=== PATIENT | male | born 1990 | race Caucasian/White ===

== ENCOUNTER 2018-11-27 18:47 | Emergency (ER) | payer MEDICAID ==
[~2018-11-27] VITALS: Ht 185.4 cm; Wt 218.2 kg
[~2018-11-27 18:47] MED LIST: ATEN25TA PO; DIAZ-351 PO; GENT5DRO4 EACHEYE; PANT-47 PO
[2018-11-27 18:48] VITALS: BP 112/74
[2018-11-27] MEDS ORDERED: AZIT250T PO (19:39)
== END 2018-11-27 19:54 | disposition home or self-care (01) ==
LOC: ER 18:48
DX: J06.9 Acute upper respiratory infection, unspecified (principal); K21.9 Gastro-esophageal reflux disease without esophagitis; F12.90 Cannabis use, unspecified, uncomplicated; F17.210 Nicotine dependence, cigarettes, uncomplicated; Z56.0 Unemployment, unspecified; Z79.899 Other long term (current) drug therapy
CPT/HCPCS: 93005; 99283

== ENCOUNTER 2019-02-08 21:23 | Emergency (ER) | payer MEDICAID ==
[~2019-02-08] VITALS: Ht 185.4 cm; Wt 81.0 kg
[~2019-02-08 21:23] MED LIST changes: +AZIT250T PO
[2019-02-08 21:25] VITALS: BP 137/82
--- NOTE | 2019-02-08 23:11 | NUR ---
PT ELOPED FROM ED BEFORE BEING SEEN BY A PROVIDER FOR UNKNOWN REASON, PT LEFT WITH A PIV STILL IN. ATTEMPTED TO CONTACT PT VIA PHONE UNABLE TO GET AHOLD OF HIM. EPIFANIO WAS CALLED REGARDING EVENT.
== END 2019-02-08 23:16 | disposition left against medical advice (07) ==
LOC: ER 21:23
DX: R06.02 Shortness of breath (principal); Z53.21 Procedure and treatment not carried out due to patient leaving prior to being seen by health care provider
CPT/HCPCS: 93005

== ENCOUNTER 2019-02-24 20:49 | Emergency (ER) | payer MEDICAID ==
[~2019-02-24] VITALS: Ht 185.4 cm; Wt 81.0 kg
[2019-02-24] MEDS ORDERED: normal saline 1000ML IV soln IVB ONE (21:00)
[2019-02-24] MEDS ORDERED: famotidine/PF 10 mg/ml inj IV ONE (21:00)
[2019-02-24] MEDS ORDERED: ondansetron/PF 4mg/2ml inj IV ONE (21:00)
[2019-02-24 21:09] VITALS: BP 129/75
--- NOTE | 2019-02-24 21:18 | NUR ---
PT DISCONNECTED HIS IV AND PULLED OF HIS BARK PEELER TO GO TO THE BATHROOM, WHEN PT RETURNED TO HIS ROOM HE INSISTED THAT HE HAD TO GO TO OUTSIDE TO SMOKE. I NOTIFIED THE PT THAT HE WASN'T ABLE TO GO OUTSIDE TO SMOKE AND THAT IF HE WANTED TO CONTINUE TO BE TREATED HE NEEDED TO REMAIN IN THE ED. PT INSISTED ON LEAVING. I DC'D PT'S IV ([facility] INTACT) AND HE LEFT THE ED. PROVIDER NOTIFIED.
[2019-02-24 21:29] LABS: ALANINE AMINOTRANSFERASE 68 U/L (12-78); ALBUMIN 3.7 G/DL (3.4-5.0); ALKALINE PHOSPHATASE 60 IU/L (46-116); ANION GAP 14 (8-16); ASPARTATE AMINO TRANSFERASE 121 U/L (10-37); BILIRUBIN,TOTAL 0.2 MG/DL (0.1-1.0); BLOOD UREA NITROGEN 5 MG/DL (7-18); BUN/CREATININE RATIO 7.8 (5.4-32.0); CALCIUM 8.5 MG/DL (8.5-10.1); CHLORIDE 105 MMOL/L (99-107); CREATININE 0.64 MG/DL (0.60-1.10); GLUCOSE 95 MG/DL (70-104); LIPASE 185 U/L (73-393); SODIUM 142 MMOL/L (135-145); TOTAL CARBON DIOXIDE 23.3 MMOL/L (24-32); TOTAL PROTEIN 7.3 G/DL (6.4-8.2); eGFR > 90 ML/MIN
[2019-02-24 21:37] LABS: BASOPHILS % (AUTO) 1.4 % (0-1); EOSINOPHILS # (AUTO) 0.1 X10'3 (0-0.9); HEMATOCRIT 41.1 % (42.0-52.0); HEMOGLOBIN 13.9 g/dl (14.0-17.9); LYMPHOCYTES # (AUTO) 1.1 X10'3 (1.1-4.8); LYMPHOCYTES % (AUTO) 33.6 % (21-51); MEAN CORPUSCULAR HEMOGLOBIN 33.3 PG (27.0-31.0); MEAN CORPUSCULAR HGB CONC 33.8 g/dL (33.0-36.5); MEAN CORPUSCULAR VOLUME 98.4 FL (78-98); MONOCYTES # (AUTO) 0.3 X10'3 (0-0.9); MONOCYTES % (AUTO) 8.5 % (2-12); NEUTROPHILS # (AUTO) 1.8 X10'3 (1.8-7.7); NEUTROPHILS % (AUTO) 54.5 % (42-75); PLATELET COUNT 108 X10'3 (140-440); RED BLOOD COUNT 4.17 X10'6 (4.70-6.10); WHITE BLOOD COUNT 3.3 X10'3 (4.5-11.0)
[2019-02-24 21:41] LABS: ETHANOL 0.471 GM/DL (0.0-0.010)
== END 2019-02-24 21:25 | disposition home or self-care (01) ==
LOC: ER 20:50
DX: F10.129 Alcohol abuse with intoxication, unspecified (principal); R10.13 Epigastric pain; R07.89 Other chest pain; R47.81 Slurred speech; K21.9 Gastro-esophageal reflux disease without esophagitis; F41.9 Anxiety disorder, unspecified; F32.9 Major depressive disorder, single episode, unspecified; F12.90 Cannabis use, unspecified, uncomplicated; Z86.69 Personal history of other diseases of the nervous system and sense organs; Z56.0 Unemployment, unspecified; Z79.2 Long term (current) use of antibiotics; Z79.899 Other long term (current) drug therapy; Y90.9 Presence of alcohol in blood, level not specified
CPT/HCPCS: 36415; 80053; 80320; 83690; 85025; 85610; 93005; 96374; 96375; 99284; J2405; J3490; J7030

== ENCOUNTER 2019-03-01 16:42 | Emergency (ER) | payer MEDICAID ==
[~2019-03-01] VITALS: Ht 185.4 cm; Wt 81.8 kg
[~2019-03-01 16:42] MED LIST changes: +LIDOcaine 1% W/epiNEPHrine 1:100,000 20ml vial ONE
[2019-03-01 17:34] VITALS: BP 106/69
== END 2019-03-01 19:20 | disposition home or self-care (01) ==
LOC: ER 16:42
DX: S80.11XA Contusion of right lower leg, initial encounter (principal); K21.9 Gastro-esophageal reflux disease without esophagitis; F12.90 Cannabis use, unspecified, uncomplicated; F17.200 Nicotine dependence, unspecified, uncomplicated; Z56.0 Unemployment, unspecified; Z79.899 Other long term (current) drug therapy; W22.8XXA Striking against or struck by other objects, initial encounter; Y93.89 Activity, other specified; Y92.89 Other specified places as the place of occurrence of the external cause; Y99.9 Unspecified external cause status
CPT/HCPCS: 73590; 99283

== ENCOUNTER 2019-07-05 19:18 | Emergency (ER) | payer MEDICAID ==
[~2019-07-05] VITALS: Ht 190.5 cm; Wt 85.0 kg
[~2019-07-05 19:18] MED LIST changes: -LIDOcaine 1% W/epiNEPHrine 1:100,000 20ml vial ONE
[2019-07-05 19:20] VITALS: BP 171/115
[2019-07-05] MEDS ORDERED: ketorolac trometh inj. 60 MG/2 ML VIAL IM ONE (20:30)
[2019-07-05] MEDS ORDERED: iohexol 300mg/ml 100ml inj. ONE (20:34)
[2019-07-05] MEDS ORDERED: MELO-100 PO (21:38)
== END 2019-07-05 21:57 | disposition home or self-care (01) ==
LOC: ER 19:19
DX: S60.511A Abrasion of right hand, initial encounter (principal); M79.18 Myalgia, other site; M25.562 Pain in left knee; R07.81 Pleurodynia; M54.2 Cervicalgia; R51 Headache; V09.9XXA Pedestrian injured in unspecified transport accident, initial encounter; Y93.89 Activity, other specified; Y92.488 Other paved roadways as the place of occurrence of the external cause; Y99.8 Other external cause status
CPT/HCPCS: 70450; 71260; 72125; 73130; 73564; 74177; 96372; 99284; J1885; Q9967

== ENCOUNTER 2020-04-28 08:02 | Emergency (ER) | payer MEDICAID ==
[~2020-04-28] VITALS: Ht 188 cm; Wt 81.8 kg
[~2020-04-28 08:02] MED LIST changes: +LIDOcaine 1% W/epiNEPHrine 1:100,000 20ml vial ONE; +MELO-100 PO
[2020-04-28] MEDS ORDERED: sulfamethoxazole/trimethoprim DS (800/160mg) tablet PO ONE (08:15)
[2020-04-28] MEDS ORDERED: cephalexin 250mg capsule PO ONE (08:15)
[2020-04-28] MEDS ORDERED: ondansetron 4mg rapidly disintigrating tab PO ONE (08:15)
[2020-04-28] MEDS ORDERED: acetaminophen 325mg tablet PO ONE (08:20)
[2020-04-28] MEDS ORDERED: ketorolac trometh. 30mg/ml inj. IM ONE (08:20)
[2020-04-28] MEDS ORDERED: bacitracin 15gm ointment TP ONE (08:20)
[2020-04-28] MEDS ORDERED: TETanus/Pertussis (Acell)/Diphther VAC/PF (Tdap-Adult) 0.5ml syringe IMVAC ONE (08:20)
[2020-04-28] MEDS ORDERED: CEPH250T PO (08:39)
[2020-04-28] MEDS ORDERED: SULF1TAB49 PO (08:39)
[2020-04-28] MEDS ORDERED: HYDROcodone/acetaminophen 5mg/325mg tablet PO ONE (08:45)
[2020-04-28] MEDS ORDERED: HYDR-3965 PO (09:22)
[2020-04-28 10:20] VITALS: BP 115/80
== END 2020-04-28 10:23 | disposition home or self-care (01) ==
LOC: ER 08:03
DX: L02.512 Cutaneous abscess of left hand (principal); M79.645 Pain in left finger(s); K21.9 Gastro-esophageal reflux disease without esophagitis; F41.9 Anxiety disorder, unspecified; F32.9 Major depressive disorder, single episode, unspecified; F12.90 Cannabis use, unspecified, uncomplicated; Z86.69 Personal history of other diseases of the nervous system and sense organs; Z72.89 Other problems related to lifestyle; Z56.0 Unemployment, unspecified; Z79.2 Long term (current) use of antibiotics; Z79.899 Other long term (current) drug therapy
CPT/HCPCS: 26010; 90471; 90715; 99284

== ENCOUNTER 2020-11-03 21:43 | Emergency (ER) | payer MEDICAID ==
[~2020-11-03] VITALS: Ht 188 cm; Wt 81.8 kg
[~2020-11-03 21:43] MED LIST changes: -LIDOcaine 1% W/epiNEPHrine 1:100,000 20ml vial ONE
[2020-11-03 21:55] VITALS: BP 147/100
[2020-11-03] MEDS ORDERED: ondansetron 4mg rapidly disintigrating tab PO ONE (23:35)
[2020-11-03] MEDS ORDERED: HYDROcodone/acetaminophen 5mg/325mg tablet PO ONE (23:35)
[2020-11-03] MEDS ORDERED: amox tr/potassium clavulanate 875/125mg TAB PO ONE (23:35)
[2020-11-03] MEDS ORDERED: IBUP-1984 PO (23:40)
[2020-11-03] MEDS ORDERED: AMOX-422 PO (23:40)
== END 2020-11-04 00:30 | disposition home or self-care (01) ==
LOC: ER 21:43
DX: H66.92 Otitis media, unspecified, left ear (principal); G43.909 Migraine, unspecified, not intractable, without status migrainosus; K21.9 Gastro-esophageal reflux disease without esophagitis; F12.90 Cannabis use, unspecified, uncomplicated; Z56.0 Unemployment, unspecified; Z72.89 Other problems related to lifestyle; Z79.2 Long term (current) use of antibiotics; Z79.899 Other long term (current) drug therapy
CPT/HCPCS: 99284

== ENCOUNTER 2020-11-16 18:05 | Emergency (ER) | payer MEDICAID ==
[~2020-11-16] VITALS: Ht 188 cm; Wt 81.8 kg
[2020-11-16 18:43] VITALS: BP 144/100
== END 2020-11-16 21:12 | disposition home or self-care (01) ==
LOC: ER 18:05
DX: H61.23 Impacted cerumen, bilateral (principal); F41.9 Anxiety disorder, unspecified; F32.9 Major depressive disorder, single episode, unspecified; K21.9 Gastro-esophageal reflux disease without esophagitis; Z56.0 Unemployment, unspecified
CPT/HCPCS: 69210; 99282

== ENCOUNTER 2021-01-04 18:02 | Emergency (ER) | payer MEDICAID ==
[~2021-01-04] VITALS: Ht 188 cm; Wt 86.3 kg
[2021-01-04 18:27] VITALS: BP 126/86
== END 2021-01-04 22:50 | disposition left against medical advice (07) ==
LOC: ER 18:04
DX: K13.79 Other lesions of oral mucosa (principal); Z53.21 Procedure and treatment not carried out due to patient leaving prior to being seen by health care provider

== ENCOUNTER 2021-01-08 20:36 | Emergency (ER) | payer MEDICAID ==
[~2021-01-08] VITALS: Ht 188 cm; Wt 86.4 kg
--- NOTE | 2021-01-08 20:50 | NUR ---
when pt is ready for d\c please call mom (aime) at [phone] provided pt gives permission to do so. She states she will come get him and take him to rehab
[2021-01-08 21:17] VITALS: BP 131/84
[2021-01-08] MEDS ORDERED: ibuprofen tablet 400 MG TABLET PO ONE (21:40)
[2021-01-08] MEDS ORDERED: AMOX-422 PO (21:51)
[2021-01-08] MEDS ORDERED: PRED20TA PO (21:51)
[2021-01-08] MEDS ORDERED: GABA300C PO (21:51)
--- NOTE | 2021-01-08 21:53 | NUR ---
CONTACTED BRISEIDA WITH PTS PERMISSION. SHE IS SENDING MEÑO TO [employer] ARCHITECT THE PATIENT.
== END 2021-01-08 22:01 | disposition home or self-care (01) ==
LOC: ER 20:37
DX: G89.29 Other chronic pain (principal); H92.03 Otalgia, bilateral; F10.10 Alcohol abuse, uncomplicated; J02.9 Acute pharyngitis, unspecified; K21.9 Gastro-esophageal reflux disease without esophagitis; F41.9 Anxiety disorder, unspecified; F32.9 Major depressive disorder, single episode, unspecified; F12.90 Cannabis use, unspecified, uncomplicated; Z56.0 Unemployment, unspecified; Z86.69 Personal history of other diseases of the nervous system and sense organs; Z79.899 Other long term (current) drug therapy; Y90.9 Presence of alcohol in blood, level not specified
CPT/HCPCS: 99283

== ENCOUNTER 2021-01-12 08:12 | Emergency (ER) | payer MEDICAID ==
[~2021-01-12] VITALS: Ht 188 cm; Wt 86.0 kg
[~2021-01-12 08:12] MED LIST changes: +AMOX-422 PO; +GABA300C PO; +PRED20TA PO
[2021-01-12 08:43] VITALS: BP 131/96
[2021-01-12] MEDS ORDERED: LORazepam 1 MG tablet PO ONE (10:30)
[2021-01-12 10:59] LABS: BASOPHILS % (AUTO) 0.5 % (0-1); EOSINOPHILS # (AUTO) 0.1 X10'3 (0-0.9); EOSINOPHILS % (AUTO) 1.1 % (0-6); HEMATOCRIT 42.7 % (42.0-52.0); HEMOGLOBIN 14.6 g/dl (14.0-17.9); LYMPHOCYTES # (AUTO) 0.7 X10'3 (1.1-4.8); LYMPHOCYTES % (AUTO) 9.6 % (21-51); MEAN CORPUSCULAR HEMOGLOBIN 32.9 PG (27.0-31.0); MEAN CORPUSCULAR VOLUME 96.7 FL (78-98); MEAN PLATELET VOLUME 9.1 FL (7.4-10.4); MONOCYTES # (AUTO) 0.6 X10'3 (0-0.9); MONOCYTES % (AUTO) 8.9 % (2-12); NEUTROPHILS # (AUTO) 5.5 X10'3 (1.8-7.7); NEUTROPHILS % (AUTO) 79.9 % (42-75); PLATELET COUNT 103 X10'3 (140-440); RED BLOOD COUNT 4.42 X10'6 (4.70-6.10); RED CELL DISTRIBUTION WIDTH 12.9 % (11.5-14.5); WHITE BLOOD COUNT 6.9 X10'3 (4.5-11.0)
[2021-01-12 11:09] LABS: ALANINE AMINOTRANSFERASE 61 U/L (12-78); ALBUMIN 3.8 G/DL (3.4-5.0); ALBUMIN/GLOBULIN RATIO 0.9 (1.1-1.5); ALKALINE PHOSPHATASE 63 IU/L (46-116); ANION GAP 14 (8-16); ASPARTATE AMINO TRANSFERASE 96 U/L (10-37); BLOOD UREA NITROGEN 7 MG/DL (7-18); BUN/CREATININE RATIO 12.3 (5.4-32.0); CALCIUM 9.1 MG/DL (8.5-10.1); CHLORIDE 96 MMOL/L (99-107); CREATININE 0.57 MG/DL (0.60-1.10); GLUCOSE 80 MG/DL (70-104); POTASSIUM 3.7 MMOL/L (3.5-5.1); SODIUM 133 MMOL/L (135-145); TOTAL CARBON DIOXIDE 23.2 MMOL/L (24-32); eGFR > 90 ML/MIN
[2021-01-12] MEDS ORDERED: LORA-269 PO (11:44)
== END 2021-01-12 12:21 | disposition home or self-care (01) ==
LOC: ER 08:14
DX: Z02.89 Encounter for other administrative examinations (principal); F10.230 Alcohol dependence with withdrawal, uncomplicated; R25.1 Tremor, unspecified; R50.9 Fever, unspecified; R25.3 Fasciculation; K21.9 Gastro-esophageal reflux disease without esophagitis; F41.9 Anxiety disorder, unspecified; F32.9 Major depressive disorder, single episode, unspecified; F12.90 Cannabis use, unspecified, uncomplicated; Z86.69 Personal history of other diseases of the nervous system and sense organs; Z56.0 Unemployment, unspecified; Z79.2 Long term (current) use of antibiotics; Z79.899 Other long term (current) drug therapy; Y90.9 Presence of alcohol in blood, level not specified
CPT/HCPCS: 36415; 80053; 85025; 99283

== ENCOUNTER 2021-01-30 23:19 | Emergency (ER) | payer MEDICAID ==
[~2021-01-30] VITALS: Ht 188 cm; Wt 86.3 kg
[~2021-01-30 23:19] MED LIST changes: -AMOX-422 PO; +LORA-269 PO; -PRED20TA PO
== END 2021-01-31 00:05 | disposition home or self-care (01) ==
LOC: ER 23:20
DX: D49.0 Neoplasm of unspecified behavior of digestive system (principal); F17.210 Nicotine dependence, cigarettes, uncomplicated; G43.909 Migraine, unspecified, not intractable, without status migrainosus; K21.9 Gastro-esophageal reflux disease without esophagitis; F12.90 Cannabis use, unspecified, uncomplicated; Z56.0 Unemployment, unspecified; Z79.2 Long term (current) use of antibiotics; Z79.899 Other long term (current) drug therapy
CPT/HCPCS: 99281

== ENCOUNTER 2021-03-25 14:25 | Emergency (ER) | payer MEDICAID | END 2021-03-25 15:36 | disposition left against medical advice (07) | LOC: ER 14:25 | DX: K13.79 Other lesions of oral mucosa (principal); Z53.21 Procedure and treatment not carried out due to patient leaving prior to being seen by health care provider ==

== ENCOUNTER 2021-05-24 20:40 | Emergency (ER) | payer MEDICAID ==
[~2021-05-24] VITALS: Ht 185.4 cm; Wt 88.4 kg
[2021-05-24 20:48] VITALS: BP 141/101
== END 2021-05-24 23:49 | disposition left against medical advice (07) ==
LOC: ER 20:41
DX: R07.0 Pain in throat (principal); Z53.21 Procedure and treatment not carried out due to patient leaving prior to being seen by health care provider

== ENCOUNTER 2021-07-24 05:46 | Inpatient (IN) | payer MEDICAID ==
[~2021-07-24] VITALS: Ht 167.6 cm; Wt 94.6 kg
--- NOTE | 2021-07-24 07:20 | NUR ---
Patient brought to room 13 with alarm security or surveillance monitor. Patient appears pale, is breathing heavy and moaning; gait steady. Patient states he cannot sit still and states he has anxiety. Patient pacing in room; mother at bedside.
--- NOTE | 2021-07-24 07:30 | NUR ---
Patient unable to give urine specimen at this time. Patient pacing in room; states he cannot sit still; requests doors to room to remain open.
--- NOTE | 2021-07-24 07:35 | NUR ---
Patient able to sit in bed for IV placement and blood draw.
--- NOTE | 2021-07-24 07:45 | NUR ---
Patient found on floor next to bed, appearing to be seizing with small amount of bleeding from two lacerations right upper face over zygomatic arch and right brow.
[2021-07-24] MEDS ORDERED: LORazepam 2 mg/ml vial ONE (07:48)
[2021-07-24 07:49] LABS: BASOPHILS % (AUTO) 0.3 % (0-1); EOSINOPHILS # (AUTO) 0.1 X10'3 (0-0.9); EOSINOPHILS % (AUTO) 1.2 % (0-6); HEMATOCRIT 42.5 % (42.0-52.0); HEMOGLOBIN 14.8 g/dl (14.0-17.9); LYMPHOCYTES # (AUTO) 1.5 X10'3 (1.1-4.8); LYMPHOCYTES % (AUTO) 14.6 % (21-51); MEAN CORPUSCULAR HEMOGLOBIN 33.6 PG (27.0-31.0); MEAN CORPUSCULAR HGB CONC 34.9 g/dL (33.0-36.5); MEAN CORPUSCULAR VOLUME 96.2 FL (78-98); MEAN PLATELET VOLUME 7.9 FL (7.4-10.4); MONOCYTES # (AUTO) 0.8 X10'3 (0-0.9); MONOCYTES % (AUTO) 7.6 % (2-12); NEUTROPHILS # (AUTO) 7.9 X10'3 (1.8-7.7); NEUTROPHILS % (AUTO) 76.3 % (42-75); PLATELET COUNT 191 X10'3 (140-440); RED BLOOD COUNT 4.41 X10'6 (4.70-6.10); RED CELL DISTRIBUTION WIDTH 14.1 % (11.5-14.5); WHITE BLOOD COUNT 10.3 X10'3 (4.5-11.0)
[2021-07-24] MEDS ORDERED: LORazepam 2 mg/ml vial IV ONE (07:50)
--- NOTE | 2021-07-24 07:50 | NUR ---
Patient assisted back to bed; seizure pads placed; both side rails raised. Patient moaning and moving extremities.
[2021-07-24] MEDS ORDERED: thiamine inj. 100 MG in normal saline 100ml IV soln 99 ML IV ONE (08:00)
[2021-07-24] MEDS ORDERED: magnesium 2GM in 50ml NS 50 ML IV ONE (08:00)
[2021-07-24] MEDS ORDERED: diphenhydrAMINE 50 mg/ml inj IV ONE (08:00)
[2021-07-24] MEDS ORDERED: phenobarbital inj 260 MG in normal saline 100ml IV soln 100 ML IV ONE (08:00)
[2021-07-24] MEDS ORDERED: haloperidol lactate 5mg/ml inj ONE (08:00)
[2021-07-24] MEDS ORDERED: diphenhydrAMINE 50 mg/ml inj ONE (08:00)
[2021-07-24] MEDS ORDERED: haloperidol lactate 5mg/ml inj IM ONE (08:00)
[2021-07-24 08:05] LABS: ALANINE AMINOTRANSFERASE 33 U/L (12-78); ALBUMIN/GLOBULIN RATIO 0.9 (1.1-1.5); ALKALINE PHOSPHATASE 68 IU/L (46-116); ANION GAP 22 (8-16); ASPARTATE AMINO TRANSFERASE 41 U/L (10-37); BILIRUBIN,TOTAL 0.8 MG/DL (0.1-1.0); BLOOD UREA NITROGEN 11 MG/DL (7-18); BUN/CREATININE RATIO 7.7 (5.4-32.0); CHLORIDE 92 MMOL/L (99-107); CREATININE 1.42 MG/DL (0.60-1.10); GLUCOSE 98 MG/DL (70-104); POTASSIUM 3.1 MMOL/L (3.5-5.1); SODIUM 133 MMOL/L (135-145); TOTAL CARBON DIOXIDE 19.1 MMOL/L (24-32); TOTAL PROTEIN 8.4 G/DL (6.4-8.2); eGFR 58 ML/MIN
[2021-07-24] MEDS ORDERED: TETanus/Pertussis (Acell)/Diphther VAC/PF (Tdap-Adult) 0.5ml syringe IMVAC ONE (10:00)
[2021-07-24] MEDS ORDERED: bacitracin 15gm ointment TP ONE (10:00)
[2021-07-24] MEDS ORDERED: LIDOcaine 1% W/epiNEPHrine 1:100,000 20ml vial IJ ONE ×2 (10:00→17:30)
[2021-07-24 10:19] LABS: LACTIC SEPSIS 4.6 MMOL/L (0.4-2.0)
[2021-07-24 14:16] LABS: GLUCOSE,CSF 67 MG/DL (40-75); TOTAL PROTEIN,CSF 60 MG/DL (15-45)
[2021-07-24 14:17] LABS: CLARITY,URINE SLIGHTLY CLOUDY (Clear); COLOR,URINE YELLOW (Yellow); GLUCOSE, URINE NEGATIVE (Neg); KETONES,URINE 15 mg/dl (Neg); LEUKOCYTE ESTERASE ,URINE NEGATIVE (Neg); NITRITES, URINE NEGATIVE (Neg); OCCULT BLOOD,URINE TRACE-INTACT (Neg); PH,URINE 5.5 (4.8-8.0); PROTEIN,URINE NEGATIVE (Neg); UROBILINOGEN,URINE 0.2 E.U/dL (0.2-1.0)
[2021-07-24 14:19] LABS: APPEARANCE,CSF CLEAR; CSF SUPERNATANT COLOR COLORLESS; CSF VOLUME 7 ML; TUBE# COUNTED 1
[2021-07-24 14:22] LABS: UA COLLECTION TYPE STRAIGHT CATH
[2021-07-24 14:23] LABS: APPEARANCE,CSF CLEAR; CSF RBC 1625 /CU MM (0); CSF SUPERNATANT COLOR COLORLESS; CSF VOLUME 7 ML; CSF WBC CT 4 /CU MM (0-5); TUBE# COUNTED 4
[2021-07-24 14:24] LABS: CSF RBC 81 /CU MM (0); CSF WBC CT 1 /CU MM (0-5)
[2021-07-24 14:28] LABS: URINE AMPHETAMINE SCREEN POSITIVE (Neg); URINE BARBITUATE SCREEN POSITIVE (Neg); URINE BENZODIAZEPINES SCREEN POSITIVE (Neg); URINE CANNABINOID SCREEN POSITIVE (Neg); URINE COCAINE SCREEN NEGATIVE (Neg); URINE METHADONE SCREEN NEGATIVE (Neg); URINE OPIATE SCREEN NEGATIVE (Neg); URINE PHENCYCLIDINE SCREEN NEGATIVE (Neg)
[2021-07-24 14:42] LABS: BACTERIA,URINE NONE SEEN /HPF (Neg); MUCUS STRANDS FEW /LPF (Neg); RBC,URINE 0-2 /HPF (0-2); SQUAMOUS EPITHELIAL CELL,UR NONE SEEN /LPF (FEW); WBC,URINE NONE SEEN /HPF (0-4)
--- NOTE | 2021-07-24 14:45 | NUR ---
Neurology consult in progress at bedside.
[2021-07-24] MEDS ORDERED: levetiracetam inj 1,500 MG in normal saline 100ml IV soln 85 ML IV ONE (15:20)
[2021-07-24] MEDS ORDERED: normal saline 1000ml 1,000 ML IVB ONE (15:35)
[2021-07-24] MEDS ORDERED: levetiracetamNACL 1500mg/100mL 100 ML IV ONE (15:55)
[2021-07-24 16:20] LABS: ALANINE AMINOTRANSFERASE 30 U/L (12-78); ALBUMIN 3.4 G/DL (3.4-5.0); ALBUMIN/GLOBULIN RATIO 0.9 (1.1-1.5); ALKALINE PHOSPHATASE 61 IU/L (46-116); ANION GAP 12 (8-16); ASPARTATE AMINO TRANSFERASE 40 U/L (10-37); BILIRUBIN,TOTAL 0.9 MG/DL (0.1-1.0); BLOOD UREA NITROGEN 14 MG/DL (7-18); BUN/CREATININE RATIO 16.7 (5.4-32.0); CALCIUM 8.7 MG/DL (8.5-10.1); CHLORIDE 97 MMOL/L (99-107); CREATININE 0.84 MG/DL (0.60-1.10); GLUCOSE 76 MG/DL (70-104); POTASSIUM 3.5 MMOL/L (3.5-5.1); SODIUM 133 MMOL/L (135-145); TOTAL CARBON DIOXIDE 24.4 MMOL/L (24-32); TOTAL PROTEIN 7.3 G/DL (6.4-8.2); eGFR > 90 ML/MIN
[2021-07-24] MEDS ORDERED: NO HOME MEDS (16:21)
[2021-07-24] MEDS: NORMAL SALINE IV SCH (17:04)
[2021-07-24] MEDS: ACYCLOVIR IV SCH (17:04)
[2021-07-24] MEDS ORDERED: acetaminophen 325mg tablet PO PRN (17:05)
[2021-07-24] MEDS ORDERED: magnesium Cl slow-release 64mg tablet PO PRN (17:05)
[2021-07-24] MEDS ORDERED: ondansetron/PF 4mg/2ml inj IV PRN (17:05)
[2021-07-24] MEDS ORDERED: potassium Cl 20 mEq SR tablet PO PRN ×2 (17:05)
[2021-07-24] MEDS: normal saline 1000ml 1,000 ML IV SCH (17:05)
[2021-07-24] MEDS ORDERED: potassium CL 10mEq/100ml bag 100 ML IV PRN (17:05)
[2021-07-24] MEDS ORDERED: mag hydrox/Alum hydrox/simeth 30ml oral suspension PO PRN (17:05)
[2021-07-24] MEDS ORDERED: magnesium hydroxide 30ml (MOM) UD suspension PO PRN (17:05)
[2021-07-24] MEDS ORDERED: magnesium 2GM in 50ml NS 50 ML IV PRN (17:05)
[2021-07-24] MEDS ORDERED: magnesium 4gm in 100ml NS 100 ML IV PRN (17:05)
[2021-07-24 17:38] LABS: MAGNESIUM 2.6 MG/DL (1.5-2.4)
[2021-07-24] MEDS ORDERED: ACYCLOVIR 200 MG/5 ML PO SCH (18:00)
[2021-07-24] MEDS ORDERED: K and/or MAG REPLACEMENT MC SCH (20:00)
[2021-07-24] MEDS ORDERED: docusate sod 100mg capsule PO SCH (20:00)
[2021-07-24] MEDS ORDERED: LORazepam 2 mg/ml vial IV PRN (20:30)
[2021-07-24 21:20] VITALS: BP 122/79
[2021-07-24] MEDS: HYDROcodone/acetaminophen 5mg/325mg tablet PO PRN (22:00)
--- NOTE | 2021-07-24 22:04 | NUR ---
Patient complaining of throat pain due to throat tumors per him. Murray ordered by MD. Medication gicen patient now resting in bed with eyes closed. Mom at beside. Vitals stable. Will continue to monitor.
[2021-07-25] MEDS: NORMAL SALINE IV SCH ×2
[2021-07-25] MEDS: ACYCLOVIR IV SCH ×2
[2021-07-25] MEDS ORDERED: thiamine inj. 500 MG in normal saline 100ml IV soln 100 ML IV SCH ×2
[2021-07-25] MEDS: normal saline 1000ml 1,000 ML IV SCH (03:05)
[2021-07-25] MEDS: HYDROcodone/acetaminophen 5mg/325mg tablet PO PRN (03:27)
--- NOTE | 2021-07-25 03:31 | NUR ---
Trouble documenting Rawson administration. Medication given at 2230. Will continue to monitor.
[2021-07-25] MEDS ORDERED: levetiracetam-NS 1000mg/100ml 100 ML IV SCH (05:00)
--- NOTE | 2021-07-25 05:08 | NUR ---
Patient decided to go AMA. Doctor aware. Attempted education.
[2021-07-25] MEDS ORDERED: enoxaparin 40mg/0.4ml syringe SUBCUT SCH (08:00)
== END 2021-07-25 07:11 | disposition left against medical advice (07) | DRG 52 ==
LOC: ER 05:47 → ED HOLD 17:08
PROVIDERS: ADMIT Family Medicine; ATTEND Family Medicine
PROC: 0JQ13ZZ Repair Face Subcutaneous Tissue and Fascia, Percutaneous Approach (ICD-10-PCS; principal; 2021-07-24)
PROC: 009U3ZX Drainage of Spinal Canal, Percutaneous Approach, Diagnostic (ICD-10-PCS; 2021-07-24)
PROC: 3E0234Z Introduction of Serum, Toxoid and Vaccine into Muscle, Percutaneous Approach (ICD-10-PCS; 2021-07-24)
DX: G92.9 Unspecified toxic encephalopathy (principal); F10.229 Alcohol dependence with intoxication, unspecified; F10.230 Alcohol dependence with withdrawal, uncomplicated; F12.90 Cannabis use, unspecified, uncomplicated; F15.10 Other stimulant abuse, uncomplicated; G40.909 Epilepsy, unspecified, not intractable, without status epilepticus; S01.81XA Laceration without foreign body of other part of head, initial encounter; Y90.2 Blood alcohol level of 40-59 mg/100 ml; Y04.0XXA Assault by unarmed brawl or fight, initial encounter; Z20.822 Contact with and (suspected) exposure to COVID-19; Z53.29 Procedure and treatment not carried out because of patient's decision for other reasons; F32.A Depression, unspecified; W18.39XA Other fall on same level, initial encounter; F41.9 Anxiety disorder, unspecified; K21.9 Gastro-esophageal reflux disease without esophagitis; Z56.0 Unemployment, unspecified; Z85.819 Personal history of malignant neoplasm of unspecified site of lip, oral cavity, and pharynx; Z82.49 Family history of ischemic heart disease and other diseases of the circulatory system; Z23 Encounter for immunization; Y93.89 Activity, other specified; Y92.89 Other specified places as the place of occurrence of the external cause; Y99.8 Other external cause status
CPT/HCPCS: 36415; 62270; 70450; 70486; 71045; 80053; 80305; 80320; 81001; 82140; 82945; 82948; 83605; 83735; 84157; 84443; 84484; 85025; 87015; 87040; 87070; 87529; 87635; 89051; 90471; 90715; 93005; 96365; 96366; 96367; 96368; 96372; 96375; 99285; C9803; G0378; J0133; J1200; J1630; J1953; J2060; J2560; J3411; J3475; J3490; J7030; J7050

== ENCOUNTER 2021-08-07 08:27 | Emergency (ER) | payer MEDICAID ==
[~2021-08-07] VITALS: Ht 190.5 cm; Wt 77.0 kg
[~2021-08-07 08:27] MED LIST changes: -ATEN25TA PO; -AZIT250T PO; -DIAZ-351 PO; -GABA300C PO; -GENT5DRO4 EACHEYE; -LORA-269 PO; -MELO-100 PO; +NO HOME MEDS; -PANT-47 PO
--- NOTE | 2021-08-07 09:50 | NUR ---
3 SURTURES REMOVED FROM RIGHT CHEEK 1 SUTURE REMOVED FROM RIGHT SIDE OF SCALP
--- NOTE | 2021-08-07 09:50 | NUR ---
PT'S EAR IRRIGATED LARGE WAX BALL REMOVED FROM RIGHT EAR
[2021-08-07] MEDS ORDERED: ketorolac trometh. 30mg/ml inj. IV ONE (10:10)
[2021-08-07] MEDS ORDERED: acetaminophen 325mg tablet PO ONE (10:10)
[2021-08-07 10:24] VITALS: BP 121/85
== END 2021-08-07 10:33 | disposition home or self-care (01) ==
LOC: ER 08:28
DX: H92.01 Otalgia, right ear (principal); R07.0 Pain in throat; R47.81 Slurred speech; H92.03 Otalgia, bilateral; K21.9 Gastro-esophageal reflux disease without esophagitis; F41.9 Anxiety disorder, unspecified; F32.9 Major depressive disorder, single episode, unspecified; F12.90 Cannabis use, unspecified, uncomplicated; F15.90 Other stimulant use, unspecified, uncomplicated; Z86.69 Personal history of other diseases of the nervous system and sense organs; Z72.89 Other problems related to lifestyle; Z56.0 Unemployment, unspecified
CPT/HCPCS: 96374; 99283; J1885

== ENCOUNTER 2021-09-17 08:39 | Emergency (ER) | payer MEDICAID ==
[~2021-09-17] VITALS: Ht 182.9 cm; Wt 77.0 kg
[2021-09-17] MEDS ORDERED: LORazepam 2 mg/ml vial IV ONE (09:10)
[2021-09-17] MEDS ORDERED: normal saline 1000ML IV soln IVB ONE (09:10)
[2021-09-17] MEDS ORDERED: ondansetron/PF 4mg/2ml inj IV ONE (09:10)
[2021-09-17 09:46] LABS: BASOPHILS % (AUTO) 0.3 % (0-1); EOSINOPHILS # (AUTO) 0.2 X10'3 (0-0.9); EOSINOPHILS % (AUTO) 1.7 % (0-6); HEMATOCRIT 33.6 % (42.0-52.0); HEMOGLOBIN 11.3 g/dl (14.0-17.9); LYMPHOCYTES # (AUTO) 0.6 X10'3 (1.1-4.8); LYMPHOCYTES % (AUTO) 5.7 % (21-51); MEAN CORPUSCULAR HEMOGLOBIN 32.8 PG (27.0-31.0); MEAN CORPUSCULAR HGB CONC 33.8 g/dL (33.0-36.5); MEAN CORPUSCULAR VOLUME 97.1 FL (78-98); MEAN PLATELET VOLUME 7.1 FL (7.4-10.4); MONOCYTES # (AUTO) 0.7 X10'3 (0-0.9); NEUTROPHILS # (AUTO) 8.7 X10'3 (1.8-7.7); NEUTROPHILS % (AUTO) 85.3 % (42-75); PLATELET COUNT 169 X10'3 (140-440); RED BLOOD COUNT 3.46 X10'6 (4.70-6.10); RED CELL DISTRIBUTION WIDTH 15.9 % (11.5-14.5); WHITE BLOOD COUNT 10.2 X10'3 (4.5-11.0)
[2021-09-17 09:53] VITALS: BP 98/57
--- NOTE | 2021-09-17 10:25 | NUR ---
Pt and mother given and understands d/c instructions. IV d/c'd, catheter was intact. Ambulatory with a steady gait.
== END 2021-09-17 10:25 | disposition home or self-care (01) ==
LOC: ER 08:39
DX: F41.9 Anxiety disorder, unspecified (principal); R11.2 Nausea with vomiting, unspecified; E86.0 Dehydration; R56.9 Unspecified convulsions; K21.9 Gastro-esophageal reflux disease without esophagitis; F32.A Depression, unspecified; F12.90 Cannabis use, unspecified, uncomplicated; F15.90 Other stimulant use, unspecified, uncomplicated; Z86.69 Personal history of other diseases of the nervous system and sense organs; Z85.9 Personal history of malignant neoplasm, unspecified; Z72.89 Other problems related to lifestyle; Z56.0 Unemployment, unspecified
CPT/HCPCS: 36415; 85025; 96374; 96375; 99284; J2060; J2405; J7030; 82948

== ENCOUNTER 2021-09-23 06:10 | Day surgery (SDC) | payer MEDICAID ==
[~2021-09-23] VITALS: Ht 182.9 cm; Wt 74.7 kg
[2021-09-23] VITALS (12 sets, daily range): BP systolic 91–118; BP diastolic 49–73
[~2021-09-23 06:10] MED LIST changes: +famotidine 20mg tablet PO ONE; +normal saline 1000ml 1,000 ML IV SCH; +ringers solution, lacted 1,000 ML IV SCH
[2021-09-23] MEDS ORDERED: ceFAZolin 2gm in dextrose, iso 50 ML IV ONE (07:15)
[2021-09-23] MEDS ORDERED: TALC 4 GM VIAL ***intrapleural administration only IX ONE (07:25)
[2021-09-23] MEDS ORDERED: BUPIVAcaine 0.5% inj/PF 30 ML ONE (07:25)
[2021-09-23 07:49] LABS: ALANINE AMINOTRANSFERASE 22 U/L (12-78); ALBUMIN 2.6 G/DL (3.4-5.0); ALBUMIN/GLOBULIN RATIO 0.6 (1.1-1.5); ALKALINE PHOSPHATASE 87 IU/L (46-116); ANION GAP 16 (8-16); ASPARTATE AMINO TRANSFERASE 30 U/L (10-37); BILIRUBIN,TOTAL 0.3 MG/DL (0.1-1.0); BLOOD UREA NITROGEN 2 MG/DL (7-18); BUN/CREATININE RATIO 4.2 (5.4-32.0); CALCIUM 8.3 MG/DL (8.5-10.1); CHLORIDE 99 MMOL/L (99-107); CREATININE 0.48 MG/DL (0.60-1.10); GLUCOSE 89 MG/DL (70-104); SODIUM 137 MMOL/L (135-145); TOTAL CARBON DIOXIDE 21.8 MMOL/L (24-32); TOTAL PROTEIN 6.8 G/DL (6.4-8.2); eGFR > 90 ML/MIN
--- NOTE | 2021-09-23 07:50 | NUR ---
critical lab k 2.[address] Chi anesthesia and surgeon. Pt also asking for pain medication
[2021-09-23 07:54] LABS: POTASSIUM 2.7 MMOL/L (3.5-5.1)
[2021-09-23] MEDS ORDERED: heparin sodium, porcine/PF 100unit/ml 5ML syringe ONE (07:56)
[2021-09-23] MEDS ORDERED: glucagon, human recombinant 1mg kit ONE (07:56)
[2021-09-23] MEDS ORDERED: LIDOcaine 1% (10mg/ml)w/preservative inj. 20ml MDV ONE (07:56)
[2021-09-23] MEDS ORDERED: iohexol 300 MG/1 ML 50ml polymer ONE (07:57)
[2021-09-23] MEDS ORDERED: PROC-8 PO (08:22)
[2021-09-23] MEDS ORDERED: HYDR-3965 PO (08:22)
[2021-09-23] MEDS ORDERED: OLAN2.5T28 PO (08:22)
[2021-09-23] MEDS ORDERED: ONDA4TAB12 PO (08:22)
[2021-09-23] MEDS ORDERED: LORA-269 PO (08:22)
[2021-09-23] MEDS ORDERED: MORP5SYR PO (08:22)
[2021-09-23] MEDS ORDERED: PROC25SU31 RC (08:22)
[2021-09-23] MEDS ORDERED: ringers solution, lacted 1,000 ML IV SCH (10:20)
[2021-09-23] MEDS ORDERED: ondansetron/PF 4mg/2ml inj IV PRN (10:20)
[2021-09-23] MEDS ORDERED: morphine 2 MG/ML inj. syringe IV PRN (10:20)
[2021-09-23] MEDS ORDERED: fentaNYL/PF 50MCG/1 ML 2ML syringe IV PRN ×2 (10:20)
[2021-09-23] MEDS ORDERED: morphine 4 MG/ML inj SYRINge IV PRN (10:20)
[2021-09-23] MEDS ORDERED: labetalol 20mg/4ml (5mg/ml) syringe IV PRN (10:20)
[2021-09-23] MEDS ORDERED: hydrALAZINE 20mg/ml inj. IV PRN (10:20)
[2021-09-23] MEDS ORDERED: MIDAZolam 1 MG/ML 5ML VIAL ONE (10:24)
[2021-09-23] MEDS ORDERED: FENTANYL CITRATE/PF 50 MCG/1 ML VIAL ONE (10:24)
[2021-09-23] MEDS ORDERED: propofol inj 20 ML IV ONE (10:41)
--- NOTE | 2021-09-23 10:51 | NUR ---
Received from OR via KRISTIN, accompanied by Anesthesiologist DR CHAHAL and report given by Anesthesiolgist. PT PRESNETS WITH PIV 18G CADEN CALVIN RIGHT UPPER CHEST CDI, VSS. Addendum: 09/23/21 at 1103 by Yanni Sommer RN, RN Amended: Links added.
--- NOTE | 2021-09-23 11:23 | NUR ---
SPOKE WITH DR SHANNON AND DR CHAHAL, BOTH DR DO NOT WANT TO TREAT THE LOW POTASSIUM. PT WAS TOLD TO FOLLOW UP WITH ONCOLOGIST MARTY. FOR NUTRITION AND POTASSIUM. Addendum: 09/23/21 at 1125 by Yanni Sommer RN, RN Amended: Links added.
--- NOTE | 2021-09-23 12:21 | NUR ---
PATIENT DISCHARGED FROM PACU IN STABLE CONDITION AFTER WRITTEN AND VERBAL DISCHARGE INSTRUCTIONS GIVEN. PT GIVEN ALL INFORMATION ON PORT A CATH WITH SEIAL NUMBERS AND GENERAL INFOMATIN GUIDE. PATIENT GAVE VERBAL UNDERSTANDING OF INSTRUCTIONS GIVEN. PATIENT LEFT FACILITY VIA WHEELCHAIR WITH RN. PT'S MOTHER SCOUT TOOK PT HOME IN PRIVATE VEHICLE. Addendum: 09/23/21 at 1236 by Yanni Sommer RN, RN Amended: Links added.
== END 2021-09-23 12:21 | disposition home or self-care (01) ==
LOC: PAS 06:10
PROVIDERS: ATTEND Preventive Medicine Aerospace Medicine
DX: C09.9 Malignant neoplasm of tonsil, unspecified (principal); I10 Essential (primary) hypertension; F41.9 Anxiety disorder, unspecified; F32.A Depression, unspecified; Z79.899 Other long term (current) drug therapy; F17.210 Nicotine dependence, cigarettes, uncomplicated; Z72.89 Other problems related to lifestyle; Z20.822 Contact with and (suspected) exposure to COVID-19
CPT/HCPCS: 36415; 36561; 71045; 76937; 77001; 80053; 87635; 93005; C1788; C9803; J1642; J2250; J2704; J3010; S0020; Z7506; Z7512; 76000; A4618; J0690; J1610; J3490; Q9967

== ENCOUNTER 2021-11-15 16:49 | Emergency (ER) | payer MEDICAID ==
[~2021-11-15] VITALS: Ht 182.9 cm; Wt 76.4 kg
[~2021-11-15 16:49] MED LIST changes: +HYDR-3965 PO; +LORA-269 PO; +MORP5SYR PO; -NO HOME MEDS; +OLAN2.5T28 PO; +ONDA4TAB12 PO; +PROC-8 PO; +PROC25SU31 RC; -famotidine 20mg tablet PO ONE; -normal saline 1000ml 1,000 ML IV SCH; -ringers solution, lacted 1,000 ML IV SCH
[2021-11-15 17:25] LABS: BASOPHILS % (AUTO) 0.5 % (0-1); EOSINOPHILS % (AUTO) 0.1 % (0-6); HEMOGLOBIN 8.6 g/dl (14.0-17.9); LYMPHOCYTES # (AUTO) 1.1 X10'3 (1.1-4.8); LYMPHOCYTES % (AUTO) 15.9 % (21-51); MEAN CORPUSCULAR HEMOGLOBIN 34.8 PG (27.0-31.0); MEAN CORPUSCULAR HGB CONC 34.5 g/dL (33.0-36.5); MEAN CORPUSCULAR VOLUME 100.7 FL (78-98); MEAN PLATELET VOLUME 7.6 FL (7.4-10.4); MONOCYTES % (AUTO) 14.2 % (2-12); NEUTROPHILS # (AUTO) 4.8 X10'3 (1.8-7.7); NEUTROPHILS % (AUTO) 69.3 % (42-75); PLATELET COUNT 86 X10'3 (140-440); RED BLOOD COUNT 2.49 X10'6 (4.70-6.10); RED CELL DISTRIBUTION WIDTH 16.3 % (11.5-14.5); WHITE BLOOD COUNT 6.9 X10'3 (4.5-11.0)
[2021-11-15 17:39] LABS: ALANINE AMINOTRANSFERASE 48 U/L (12-78); ALBUMIN 3.1 G/DL (3.4-5.0); ALBUMIN/GLOBULIN RATIO 0.7 (1.1-1.5); ALKALINE PHOSPHATASE 104 IU/L (46-116); ANION GAP 17 (8-16); ASPARTATE AMINO TRANSFERASE 71 U/L (10-37); BILIRUBIN,TOTAL 0.3 MG/DL (0.1-1.0); BLOOD UREA NITROGEN 24 MG/DL (7-18); CALCIUM 8.1 MG/DL (8.5-10.1); CHLORIDE 86 MMOL/L (99-107); CREATININE 1.84 MG/DL (0.60-1.10); GLUCOSE 90 MG/DL (70-104); MAGNESIUM 1.2 MG/DL (1.5-2.4); SODIUM 130 MMOL/L (135-145); TOTAL CARBON DIOXIDE 27.1 MMOL/L (24-32); TOTAL PROTEIN 7.7 G/DL (6.4-8.2); eGFR 43 ML/MIN
[2021-11-15 17:49] LABS: POTASSIUM 2.4 MMOL/L (3.5-5.1)
[2021-11-15] MEDS ORDERED: potassium Cl 10 mEq/100mL bag IV ONE (18:35)
[2021-11-15] MEDS ORDERED: potassium Cl 20 mEq SR tablet PO ONE (18:35)
[2021-11-15] MEDS ORDERED: magnesium 2GM in 50ml NS 50 ML IV ONE (18:35)
[2021-11-15] MEDS ORDERED: normal saline 1000ML IV soln IVB ONE (18:45)
[2021-11-15] MEDS: potassium CL 10mEq/100ml bag 100 ML IV SCH ×2 (19:21→19:55)
[2021-11-15] MEDS ORDERED: POTASSIUM BICARB 20meq eff tab 20 MEQ TABLET.EFF PO ONE (19:25)
[2021-11-15 21:00] VITALS: BP 101/53
== END 2021-11-15 21:07 | disposition home or self-care (01) ==
LOC: ER 16:50
DX: R11.0 Nausea (principal); E87.6 Hypokalemia; D64.81 Anemia due to antineoplastic chemotherapy; T45.1X5A Adverse effect of antineoplastic and immunosuppressive drugs, initial encounter; Y92.89 Other specified places as the place of occurrence of the external cause
CPT/HCPCS: 36415; 80053; 83735; 85025; 96365; 99284; J3475; J3480; J7030

== ENCOUNTER 2021-12-21 10:13 | Inpatient (IN) | payer MEDICAID ==
[~2021-12-21] VITALS: Ht 193 cm; Wt 75.0 kg
[2021-12-21] MEDS ORDERED: ringers solution, lacted 1,000 ML IV ONE (12:05)
[2021-12-21 12:24] LABS: BASOPHILS % (AUTO) 0.2 % (0-1); EOSINOPHILS # (AUTO) 0.1 X10'3 (0-0.9); EOSINOPHILS % (AUTO) 1.2 % (0-6); HEMATOCRIT 29.7 % (42.0-52.0); HEMOGLOBIN 10.5 g/dl (14.0-17.9); LYMPHOCYTES # (AUTO) 0.7 X10'3 (1.1-4.8); MEAN CORPUSCULAR HEMOGLOBIN 35.3 PG (27.0-31.0); MEAN CORPUSCULAR HGB CONC 35.2 g/dL (33.0-36.5); MEAN CORPUSCULAR VOLUME 100.3 FL (78-98); MEAN PLATELET VOLUME 7.3 FL (7.4-10.4); MONOCYTES # (AUTO) 0.5 X10'3 (0-0.9); MONOCYTES % (AUTO) 6.4 % (2-12); NEUTROPHILS # (AUTO) 6.6 X10'3 (1.8-7.7); NEUTROPHILS % (AUTO) 83.2 % (42-75); PLATELET COUNT 94 X10'3 (140-440); RED BLOOD COUNT 2.96 X10'6 (4.70-6.10); RED CELL DISTRIBUTION WIDTH 17.9 % (11.5-14.5); WHITE BLOOD COUNT 7.9 X10'3 (4.5-11.0)
[2021-12-21 12:37] LABS: ALANINE AMINOTRANSFERASE 52 U/L (12-78); ALBUMIN 3.5 G/DL (3.4-5.0); ALBUMIN/GLOBULIN RATIO 0.8 (1.1-1.5); ALKALINE PHOSPHATASE 93 IU/L (46-116); ANION GAP 19 (8-16); ASPARTATE AMINO TRANSFERASE 65 U/L (10-37); BILIRUBIN,TOTAL 0.7 MG/DL (0.1-1.0); BLOOD UREA NITROGEN 43 MG/DL (7-18); BUN/CREATININE RATIO 11.6 (5.4-32.0); CALCIUM 8.9 MG/DL (8.5-10.1); CHLORIDE 76 MMOL/L (99-107); CREATININE 3.72 MG/DL (0.60-1.10); GLUCOSE 82 MG/DL (70-104); LIPASE 184 U/L (73-393); MAGNESIUM 1.9 MG/DL (1.5-2.4); POTASSIUM 3.2 MMOL/L (3.5-5.1); TOTAL CARBON DIOXIDE 23.9 MMOL/L (24-32); TOTAL PROTEIN 7.9 G/DL (6.4-8.2); eGFR 19 ML/MIN
[2021-12-21 12:40] LABS: SODIUM 119 MMOL/L (135-145)
[2021-12-21 12:55] LABS: ANISOCYTOSIS 1+; PLATELET ESTIMATE DECREASED
[2021-12-21] MEDS ORDERED: acetaminophen 325mg tablet PO PRN (13:30)
[2021-12-21] MEDS ORDERED: magnesium Cl slow-release 64mg tablet PO PRN (13:30)
[2021-12-21] MEDS ORDERED: magnesium 4gm in 100ml NS 100 ML IV PRN (13:30)
[2021-12-21] MEDS ORDERED: morphine 2 MG/ML inj. syringe IV PRN ×2 (13:30)
[2021-12-21] MEDS ORDERED: magnesium hydroxide 30ml (MOM) UD suspension PO PRN (13:30)
[2021-12-21] MEDS ORDERED: POTASSIUM BICARB 20meq eff tab 20 MEQ TABLET.EFF PO PRN ×2 (13:30)
[2021-12-21] MEDS ORDERED: mag hydrox/Alum hydrox/simeth 30ml oral suspension PO PRN (13:30)
[2021-12-21] MEDS ORDERED: magnesium 2GM in 50ml NS 50 ML IV PRN (13:30)
[2021-12-21] MEDS: ondansetron/PF 4mg/2ml inj IV PRN (15:24)
[2021-12-21] MEDS: normal saline 1000ml 1,000 ML IV SCH ×2 (15:27→23:47)
[2021-12-21] MEDS ORDERED: ATI1T PO (15:32)
[2021-12-21] MEDS ORDERED: FENT1PAT7 TOP (15:32)
[2021-12-21] MEDS ORDERED: LEVE500T PO (15:32)
[2021-12-21] MEDS ORDERED: NEOM10DR45 EACH EAR (15:32)
[2021-12-21] MEDS ORDERED: POTA20PA31 PO (15:32)
[2021-12-21] MEDS ORDERED: NUTR250L62 (15:32)
[2021-12-21] MEDS ORDERED: AMOX1TAB15 PO (15:32)
[2021-12-21] MEDS ORDERED: AMLO5TAB16 PO (15:32)
--- NOTE | 2021-12-21 16:29 | NUR ---
WHILE GIVING REPORT TO KEVIN HORTON, [facility] K+2.9 RESULTED INFORMED HER OF RESULT.
--- NOTE | 2021-12-21 17:24 | NUR ---
received patient. started IV fluids as ordered, pt A&Ox4. Called his mom requesting her to bring accessories for ALMA-ENRIQUEZ PEG tube TO ADMINISTER
--- NOTE | 2021-12-21 17:26 | NUR ---
CALLED PHARMACY TO CHANGE MEDS ORDERED VIA PO TO PEG TUBE ADMINISTRATION. WILL REPLACE POTASSIUM WHEN MEDS CHANGED
[2021-12-21 18:00] VITALS: BP 125/81
[2021-12-21] MEDS ORDERED: magnesium hydroxide 30ml (MOM) UD suspension PEG PRN (18:11)
[2021-12-21] MEDS ORDERED: POTASSIUM BICARB 20meq eff tab 20 MEQ TABLET.EFF PEG PRN ×2 (18:12)
--- NOTE | 2021-12-21 18:12 | NUR ---
CALLED PHARMACY AGAIN, MEDS HAD NOT BEEN CONVERTED PEG TUBE ROUTE. ASSURED BY PHARMACIST IT WILL BE TAKEN CARE OF
[2021-12-21] MEDS ORDERED: acetaminophen 325mg/10.15ml oral unit dose solution PEG PRN (18:13)
[2021-12-21] MEDS ORDERED: mag hydrox/Alum hydrox/simeth 30ml oral suspension PEG PRN (18:13)
[2021-12-21] MEDS: K and/or MAG REPLACEMENT MC SCH (20:00)
[2021-12-21] MEDS: heparin, porcine 5000 units/ml vial SQ SCH (20:00)
[2021-12-21] MEDS ORDERED: levetiracetam 250mg tablet PO SCH (20:56)
[2021-12-21] MEDS: docusate sodium 100mg/10ml UD cup PEG SCH (21:40)
[2021-12-21] MEDS: potassium CL 10mEq/100ml bag 100 ML IV PRN ×2 (21:58→23:13)
[2021-12-21 22:00] VITALS: BP 113/68
[2021-12-22] MEDS: potassium CL 10mEq/100ml bag 100 ML IV PRN ×6 (00:16→05:46)
[2021-12-22 02:00] VITALS: BP 116/65
[2021-12-22 06:00] VITALS: BP 117/69
--- NOTE | 2021-12-22 06:40 | NUR ---
Patient in room PCU 3023. I have received report from AZAEL HORTON and had the opportunity to ask questions and assume patient care.
[2021-12-22 07:36] LABS: BASOPHILS % (AUTO) 0.3 % (0-1); EOSINOPHILS # (AUTO) 0.1 X10'3 (0-0.9); EOSINOPHILS % (AUTO) 1.2 % (0-6); HEMATOCRIT 24.6 % (42.0-52.0); HEMOGLOBIN 8.7 g/dl (14.0-17.9); LYMPHOCYTES # (AUTO) 0.5 X10'3 (1.1-4.8); LYMPHOCYTES % (AUTO) 7.1 % (21-51); MEAN CORPUSCULAR HEMOGLOBIN 35.3 PG (27.0-31.0); MEAN CORPUSCULAR HGB CONC 35.3 g/dL (33.0-36.5); MEAN CORPUSCULAR VOLUME 99.9 FL (78-98); MEAN PLATELET VOLUME 7.7 FL (7.4-10.4); MONOCYTES # (AUTO) 0.4 X10'3 (0-0.9); MONOCYTES % (AUTO) 6.8 % (2-12); NEUTROPHILS # (AUTO) 5.5 X10'3 (1.8-7.7); NEUTROPHILS % (AUTO) 84.6 % (42-75); PLATELET COUNT 66 X10'3 (140-440); RED BLOOD COUNT 2.47 X10'6 (4.70-6.10); RED CELL DISTRIBUTION WIDTH 18.1 % (11.5-14.5); WHITE BLOOD COUNT 6.6 X10'3 (4.5-11.0)
[2021-12-22 07:38] LABS: ANION GAP 16 (8-16); BLOOD UREA NITROGEN 48 MG/DL (7-18); BUN/CREATININE RATIO 12.3 (5.4-32.0); CALCIUM 8.4 MG/DL (8.5-10.1); CHLORIDE 80 MMOL/L (99-107); CREATININE 3.89 MG/DL (0.60-1.10); GLUCOSE 66 MG/DL (70-104); MAGNESIUM 1.8 MG/DL (1.5-2.4); POTASSIUM 3.8 MMOL/L (3.5-5.1); TOTAL CARBON DIOXIDE 24.1 MMOL/L (24-32); eGFR 18 ML/MIN
[2021-12-22] MEDS ORDERED: levetiracetam 250mg tablet PEG SCH (07:51)
[2021-12-22 07:59] LABS: SODIUM 120 MMOL/L (135-145)
[2021-12-22] MEDS: heparin, porcine 5000 units/ml vial SQ SCH (08:00)
[2021-12-22] MEDS ORDERED: amLODIPine 5mg tablet PO SCH (08:00)
[2021-12-22] MEDS ORDERED: amLODIPine 5mg tablet PEG SCH (08:00)
[2021-12-22] MEDS: K and/or MAG REPLACEMENT MC SCH (08:00)
[2021-12-22] MEDS ORDERED: OLANZapine 2.5MG tablet PO SCH (08:00)
[2021-12-22] MEDS ORDERED: OLANZapine 2.5MG tablet PEG SCH (08:00)
[2021-12-22 08:26] LABS: PLATELET ESTIMATE DECREASED
[2021-12-22 08:27] LABS: ANISOCYTOSIS 2+
[2021-12-22] MEDS: docusate sodium 100mg/10ml UD cup PEG SCH (09:08)
[2021-12-22] MEDS: ondansetron/PF 4mg/2ml inj IV PRN (09:16)
[2021-12-22 11:00] VITALS: BP 114/64
[2021-12-22] MEDS: normal saline 1000ml 1,000 ML IV SCH (12:30)
[2021-12-22 15:00] VITALS: BP 144/86
--- NOTE | 2021-12-22 17:50 | NUR ---
PAGER ID: [phone] MESSAGE: Madalyn white [phone] [id number] pt has left AMA Thank you, Bharat HORTON
--- NOTE | 2021-12-22 17:54 | NUR ---
pt notified CENTER DIRECTOR he wanted to leave here and go to [facility]. I explained it was not safe for him to leave and it would be AMA. He stated he understood and still wanted to leave, stated his mom was in front of hospital waiting for him already. I removed PIV, pt dressed self and ambulated out. Dr Liu kapoor, AMA signed and placed in chart
== END 2021-12-22 18:00 | disposition left against medical advice (07) | DRG 426 ==
LOC: ER 10:14 → ED HOLD 13:34 → PCU 3S 16:45
PROVIDERS: ADMIT Family Medicine; ATTEND Family Medicine
DX: E87.1 Hypo-osmolality and hyponatremia (principal); N17.0 Acute kidney failure with tubular necrosis; E86.0 Dehydration; F12.90 Cannabis use, unspecified, uncomplicated; F17.210 Nicotine dependence, cigarettes, uncomplicated; F10.10 Alcohol abuse, uncomplicated; E87.6 Hypokalemia; F32.A Depression, unspecified; F41.9 Anxiety disorder, unspecified; K21.9 Gastro-esophageal reflux disease without esophagitis; K59.00 Constipation, unspecified; G89.4 Chronic pain syndrome; Z53.29 Procedure and treatment not carried out because of patient's decision for other reasons; Z82.49 Family history of ischemic heart disease and other diseases of the circulatory system; Z56.0 Unemployment, unspecified; Z79.899 Other long term (current) drug therapy
CPT/HCPCS: 36415; 71045; 80048; 80053; 83690; 83735; 84132; 85008; 85025; 99285; G0378; J1644; J2270; J2405; J3480; J7030